=== PATIENT | male | born 1970 | race Caucasian/White ===

== ENCOUNTER 2017-09-27 12:17 | Emergency (ER) | payer OTHER ==
[~2017-09-27] VITALS: Ht 172.7 cm
[2017-09-27 14:16] LABS: ALBUMIN 4.3 g/dL (3.2-4.8); CHLORIDE 104 mEq/L (99-109); POTASSIUM 4.2 mEq/L (3.7-5.4); SODIUM 146 mEq/L (136-147)
[2017-09-27 14:19] LABS: GLUCOSE 98 mg/dL (70-99); TOTAL PROTEIN 7.4 g/dL (6.4-8.3)
[2017-09-27 14:20] LABS: HEMOGLOBIN 18.4 G/DL (12.5-16.6); MCH 34.7 PG (29.0-34.0); MCHC 35.4 G/DL (30.0-36.0); MCV 98.1 FL (86-99); PLATELET COUNT 256 K/uL (156-360); RBC DIS.WIDTH-CV 11.5 % (11.8-14.6); RBC DIS.WIDTH-SD 42.4 % (39-53)
[2017-09-27 14:20] LABS: TOTAL BILIRUBIN 1.1 mg/dL (0.0-1.0)
[2017-09-27 14:22] LABS: ALKALINE PHOSPHATASE 76 IU/L (3-129); GFR ESTIMATE (CALCULATED) > 59 mL/min/ (58.99-99999); SERUM ETHYL ALCOHOL 387 mg/dL
[2017-09-27 14:24] LABS: AST (GOT) 151 IU/L (2-34); UREA NITROGEN (BUN) 22 mg/dL (9-23)
[2017-09-27 14:25] LABS: ALT (GPT) 90 IU/L (3-49)
[2017-09-27] MEDS ORDERED: LIBRIUM25 MG PO (18:31)
[2017-09-27] MEDS ORDERED: THIAMINE HCL100 MG PO (18:31)
[2017-09-27 18:46] VITALS: BP 142/105
== END 2017-09-27 18:53 | disposition home or self-care (01) ==
LOC: EME 12:17
PROVIDERS: Physician Assistant
DX: F10.229 Alcohol dependence with intoxication, unspecified (principal); Y90.8 Blood alcohol level of 240 mg/100 ml or more; F32.9 Major depressive disorder, single episode, unspecified; R45.851 Suicidal ideations
CPT/HCPCS: 80053; 85027; 99281; 99284; G0480